=== PATIENT | female | born 1950 | race Caucasian/White ===

== ENCOUNTER 2016-12-19 10:25 | Emergency (ER) | payer OTHER, BC ==
[2016-12-19 10:36] VITALS: TEMP 97.9
--- NOTE | 2016-12-19 10:50 | EDPHY ---
HPI/HX/ROS/PE/MDM Narrative: CHIEF COMPLAINT: Finger lacerations HPI: The patient is a 58-year-old female with a history of von Willebrand's disease. Last night at approximately 7:00 p.m., the patient was attempting to cut something with a knife when she slipped, causing abrasions/lacerations to the extensor surface of her right hand along the PIP joints. She was able to control bleeding with pressure and elevation. She presents to the emergency department today with complaint of concern over infection secondary to some mild swelling to the dorsum of her hand. She denies fever or discharge from wound. REVIEW OF SYSTEMS: Aside from elements discussed in the HPI, a comprehensive 10-point review of systems was reviewed and is negative. PMH: On Willebrand's disease. SOCIAL HISTORY: Has several kids. Originally from [place]. No primary physician. PHYSICAL EXAM: General:Patient is alert, in no acute distress. Skin: Normal color. No rash. Warm and dry. Extremities: Right hand: A 1 cm superficial laceration/abrasion is present over each of the PIP joints on the extensor surface. None of these wounds penetrate the fascia. The patient has 5/5 strength to flexion and extension at all joints on every digit. Capillary refill is intact. No tendon involvement is seen. Capillary refill normal in all digits. Is a very mild amount of diffuse swelling to the distal hand just proximal to the MCP joints. There is no associated erythema, tenderness or induration. Neuro: Oriented x3. Normal motor function. Normal sensory function. MDM: This patient presents with superficial lacerations to multiple digits on her right hand. I see no evidence of neurologic, tendon or vascular injury. I do not think these wounds require repair with sutures as they are quite superficial. Regardless, the patient is well outside the window for suture repair. I see no signs of active infection. I suspect her swelling is likely dependent edema secondary to keeping her arm elevated. I did offer to write the patient a prescription for Keflex as she is going to be traveling. She is to fill this prescription only if she senses a change in her condition. She is comfortable with this plan. General Time Seen by Provider: 12/19/16 10:26 Initial Vital Signs: Initial Vital Signs Temperature (C) 36.6 C 12/19/16 10:34 Heart Rate 75 12/19/16 10:34 Blood Pressure 151/88 H 12/19/16 10:34 O2 Sat (%) 98 12/19/16 10:34 O2 Delivery Mode Room Air Allergies/Adverse Reactions: No Known Allergies Allergy (Unverified 12/19/16 10:49) Home Medications: Medication Instructions Recorded No Medications [NO HOME 1 [place] [facility] [place]ICATIONS[place] Cephalexin [Keflex] 500 mg PO TID #21 cap 12/19/16 Departure - Departure Disposition: Home, Routine, Self-Care Clinical Impression: Laceration of multiple sites of hand and fingers Condition: Good Instructions: Finger Laceration (ED) Additional Instructions: Return to the Emergency Department for fever, redness, discharge from wound, increasing pain or other worsening of condition. Referrals: NONE *PRIMARY CARE P,. [Primary Care Provider] - As per Instructions Prescriptions: Cephalexin [Keflex] 500 mg PO TID #21 cap
[2016-12-19 11:04] VITALS: BP 118/62; PULSE 85; RESP 18; O2SAT 97
== END 2016-12-19 11:03 | disposition home or self-care (01) ==
LOC: CED 10:25
DX: S61.411A Laceration without foreign body of right hand, initial encounter (principal); W26.0XXA Contact with knife, initial encounter